=== PATIENT | male | born 1950 | race Caucasian/White ===

== ENCOUNTER 2021-05-16 08:00 | Outpatient (CLI) | payer OTHER | END 2021-05-16 23:59 | disposition home or self-care (01) | LOC: LAB.R 08:00 | PROVIDERS: ATTEND Internal Medicine | DX: Z20.822 Contact with and (suspected) exposure to COVID-19 (principal) ==

== ENCOUNTER 2021-05-16 12:20 | Outpatient (CLI) | payer OTHER ==
--- NOTE | 2021-05-16 13:12 | XRAY Report ---
PROCEDURE: Chest 2 View X-Ray INDICATIONS: DYSPNEA TECHNIQUE: 2 view(s) of the chest. COMPARISON: None. FINDINGS: SUPPORT DEVICES: None. LUNGS/PLEURA: No focal consolidation or space-occupying pneumothorax. Minimal blunting of the left co stophrenic sulcus, which may reflect scarring. No significant pleural effusion. MEDIASTINUM: The cardiomediastinal silhouette is within normal limits. BONES/SOFT TISSUES: No acute abnormality. IMPRESSION: 1.No acute cardiopulmonary abnormality. Reviewed by: Armando Colon MD on 05/16/2021 1:11 PM PDT Approved by: Armando Colon MD on 05/16/2021 1:11 PM PDT Station ID: [id number]
== END 2021-05-16 12:21 | disposition home or self-care (01) ==
LOC: DI 12:20
PROVIDERS: ATTEND Internal Medicine
DX: R06.00 Dyspnea, unspecified (principal); Z20.822 Contact with and (suspected) exposure to COVID-19

== ENCOUNTER 2021-05-24 17:02 | Outpatient (CLI) | payer OTHER ==
[2021-05-24 17:31] LABS: BASOPHILS % (AUTO) 0.3 %; EOSINOPHILS % (AUTO) 0.1 %; HCT - HEMATOCRIT 35.1 % (42.0-52.0); HGB - HEMOGLOBIN 11.5 g/dL (14.0-18.0); LYMPHOCYTES # (AUTO) 0.7 10^3/uL (1.5-3.5); LYMPHOCYTES % (AUTO) 6.2 %; MEAN CORPUSCULAR HEMOGLOBIN 30.1 pg (27.0-31.0); MEAN CORPUSCULAR HGB CONC 32.8 g/dL (32.0-36.0); MEAN CORPUSCULAR VOLUME 91.9 fL (80.0-94.0); MEAN PLATELET VOLUME 8.9 fL (7.4-11.4); MONOCYTES # (AUTO) 1.1 10^3/uL (0.0-1.0); MONOCYTES % (AUTO) 9.2 %; NEUTROPHILS # (AUTO) 9.8 10^3/uL (1.5-6.6); NEUTROPHILS % (AUTO) 83.9 %; PLT - PLATELET COUNT 278 10^3/uL (130-450); RED BLOOD COUNT 3.82 10^6/uL (4.70-6.10); WHITE BLOOD COUNT 11.7 x10^3/uL (4.8-10.8)
[2021-05-24 17:33] LABS: BILIRUBIN,URINE NEGATIVE (NEGATIVE); GLUCOSE, URINE (UA) 100 mg/dL (NEGATIVE); KETONES,URINE (UA) 15 mg/dL (NEGATIVE); LEUKOCYTE ESTERASE, URINE NEGATIVE (NEGATIVE); NITRITE,URINE NEGATIVE (NEGATIVE); OCCULT BLOOD,URINE NEGATIVE (NEGATIVE); PH,URINE 5.5 PH (5.0-7.5); PROTEIN,URINE NEGATIVE (NEGATIVE); UROBILINOGEN,URINE 0.2 (NORMAL) E.U./dL (NORMAL)
[2021-05-24 17:37] LABS: CLARITY,URINE CLEAR (CLEAR)
[2021-05-24 17:45] LABS: ALBUMIN 3.4 g/dL (3.2-5.5); BILIRUBIN,TOTAL 1.1 mg/dL (0.2-1.0); CALCIUM 9.4 mg/dL (8.5-10.3); CREATININE 0.8 mg/dL (0.6-1.2); POTASSIUM 4.1 mmol/L (3.5-5.0); TOTAL PROTEIN 6.7 g/dL (6.7-8.2)
[2021-05-24 18:01] LABS: THYROID STIMULATING HORMONE 1.49 uIU/mL (0.34-5.60)
[2021-05-26 23:03] LABS: ALBUMIN 3.2 g/dL (3.8-4.8); ALPHA 1 GLOBULIN 0.5 g/dL (0.2-0.3); ALPHA 2 GLOBULIN 1.1 g/dL (0.5-0.9); BETA 1 GLOBULIN 0.4 g/dL (0.4-0.6); BETA 2 GLOBULIN 0.4 g/dL (0.2-0.5); GAMMA GLOBULIN 0.8 g/dL (0.8-1.7)
== END 2021-05-24 17:03 | disposition home or self-care (01) ==
LOC: LAB 17:02
PROVIDERS: ATTEND Internal Medicine
DX: E83.52 Hypercalcemia (principal); R41.82 Altered mental status, unspecified; R41.3 Other amnesia; R53.83 Other fatigue; R82.90 Unspecified abnormal findings in urine
CPT/HCPCS: 36415; 80053; 81001; 81003; 82306; 83970; 84155; 84165; 84443; 85025; 87086

== ENCOUNTER 2021-05-28 07:00 | Outpatient (CLI) | payer OTHER | END 2021-05-28 23:59 | disposition home or self-care (01) | LOC: LAB.R 07:00 | PROVIDERS: ATTEND Internal Medicine | DX: E83.52 Hypercalcemia (principal); R41.82 Altered mental status, unspecified; R41.3 Other amnesia; R53.83 Other fatigue; R82.90 Unspecified abnormal findings in urine | CPT/HCPCS: 81599; 82570; 84156; 84166 ==

== ENCOUNTER 2021-05-28 20:55 | Emergency (ER) | payer OTHER ==
[2021-05-28 21:08] VITALS: BP 139/84
--- NOTE | 2021-05-28 22:13 | ED Physician Documentation ---
History of Present Illness - Stated complaint Stated Complaint: MALE /CONFUSED - Chief complaint Chief Complaint: Neuro - Additonal information Additional information: Patient is a 70-year-old male presenting to the emergency department with chief complaint of emotional lability and forgetfulness at home. He reports that he has been having episodes of feeling emotionally overwhelmed, which results in him sobbing uncontrollably at home. He reports multiple life stressors including attempting to Sell a home that he has lived in for several years. He also reports a close family members having significant medical issues at this time. Reports that he has been having progressive difficulty with memory over the course of the last year.States that this is gotten worse over the course of the last month, particularly he notices that he has a difficult time with math, stating that he had a hard time focusing and completing the math necessary to file his taxes or to calculate sales tax. He denies Feelings of hopelessness, helplessness, thoughts of suicide. He states that he has been following with his primary care doctor and recently had blood work and a urine analysis however comes to the emergency department today because he is concerned about his ability to make decisions concerning the sale of his home. He denies for any headache, blurred vision, double vision, head trauma, fever, chills, chest pain, shortness of breath, abdominal pain, nausea, vomiting, diarrhea, constipation, dysuria, urinary frequency. Review of Systems Ten Systems: 10 systems reviewed and negative Constitutional: denies: Fever Eyes: denies: Loss of vision Ears: denies: Loss of hearing Nose: denies: Rhinorrhea / runny nose Throat: denies: Dental pain / toothache Cardiac: denies: Chest pain / pressure Respiratory: denies: Dyspnea GI: denies: Abdominal Pain, Nausea, Vomiting : denies: Dysuria, Frequency, Hesitancy, Unable to Void, Incontinent Skin: denies: Rash Musculoskeletal: denies: Neck pain Neurologic: denies: Generalized weakness, Focal weakness, Numbness, Difficulty speaking, Near syncope, Syncope, Seizure, Confused Psychiatric: reports: Anxiety. denies: Depressed, Suicidal, Hallucinations Endocrine: denies: Polydypsia, Polyuria PD PAST MEDICAL HISTORY - Allergies Allergies/Adverse Reactions: Allergies Allergy/AdvReac Type Severity Reaction Status Date / Time No Known Drug Allergies Allergy Verified 05/28/21 21:08 PD ED PE NORMAL - Vitals Vital signs reviewed: Yes - General General: Alert and oriented X 3, No acute distress, Well developed/nourished - HEENT HEENT: Atraumatic - Neck Neck: Supple, no meningeal sign, No JVD, No bruit - Cardiac Cardiac: RRR, No gallop - Respiratory Respiratory: No respiratory distress, Clear bilaterally - Abdomen Abdomen: Normal bowel sounds, Non tender, No organomegaly - Male Male : Deferred, Harmonica Maker present - Rectal Rectal: Deferred, Pt declined - Back Back: No CVA TTP, No spinal TTP - Derm Derm: Normal color - Extremities Extremities: No deformity, No edema - Neuro Neuro: Alert and oriented X 3, visitor services technician 2-12 intact, No motor deficit, No sensory deficit, Normal speech, Other (Normal Mini-Mental status exam) - Psych Psych: Normal mood Results - Vitals Vitals: Vital Signs - 24 hr 05/28/21 21:03 Temperature 36.5 C Heart Rate 76 Respiratory 16 Rate Blood Pressure 139/84 H O2 Saturation 98 Oxygen O2 Source Room air PD MEDICAL DECISION MAKING - ED course Complexity details: d/w patient ED course: Patient is 70-year-old male presenting to the emergency department with concern for emotional lability and forgetfulness. Symptoms have been ongoing for several months at least. Additionally he reported multiple significant life stressors. Afebrile, hemodynamically stable on arrival to the emergency department. Chart review does demonstrate that he is currently being evaluated by primary care for this issue. Urine analysis performed a few days ago was negative for indications of infection. He denies any symptoms that would be concerning for urinary tract infection. The remainder of his physical exam is benign. I do believe that the most likely etiology for his presentation is a combination of emotional overwhelm/burnout as well as possibly some early onset dementia. I do not see any life-threatening or emergent cause for his symptoms and will refer him to primary care for Further evaluation. Departure - Departure Disposition: 01 Home, Self Care Clinical Impression: Stress reaction, Memory problem Instructions: Stress Relief Relaxation, ED Stress React Comments: Thank you for allowing us to care for you today at [facility]. Your urine studies which your doctor ordered a few days ago did not show any indications of infection. It does sound like you are going through a particularly stressful time, particularly with the sale of your home. I would like to encourage you to reach out to family and friends for added social support in the next few days. As we discussed I do think you would benefit from some deep breathing and other guided relaxation techniques at home. I have attached a document concerning some of these. More can be found easily on the Internet. Please do continue to follow- up with your primary care doctor. If it anytime you have any new or worsening symptoms or if you do develop any symptoms concerning for urinary tract infection such as urinary frequency, burning or discomfort or particularly foul or malodorous urine please not hesitate to return.
== END 2021-05-28 22:14 | disposition home or self-care (01) ==
LOC: ED 20:55
DX: F43.9 Reaction to severe stress, unspecified (principal); R41.3 Other amnesia
CPT/HCPCS: 99281; 99282

== ENCOUNTER 2021-06-08 04:23 | Outpatient (CLI) | payer OTHER | END 2021-06-08 04:24 | disposition short-term general hospital (02) | LOC: EMS 04:23 | DX: R47.81 Slurred speech (principal); R29.810 Facial weakness | CPT/HCPCS: A0425; A0427 ==

== ENCOUNTER 2021-07-20 08:00 | Outpatient (CLI) | payer OTHER ==
--- NOTE | 2021-07-20 13:46 | CT Report ---
PROCEDURE: HEAD WO INDICATIONS: Altered mental status TECHNIQUE: Noncontrast 4.5 mm thick angled axial sections acquired from the foramen magnum to the vertex. For r adiation dose reduction, the following was used: automated exposure control, adjustment of mA and/or kV according to patient size. COMPARISON: None. FINDINGS: Image quality: Excellent. CSF spaces: Basal cisterns are patent. No extra-axial fluid collections. Ventricles are normal in size and shape. Brain: No midline shift. No intracranial masses or hemorrhage. Jung-white matter interface is norm al. Skull and face: Calvarium and visualized facial bones are intact, without suspicious lesions. Sinuses: Visualized sinuses and mastoids are clear. IMPRESSION: No acute intracranial abnormality. Reviewed by: Stephen Aguiar MD on 07/20/2021 1:45 PM PDT Approved by: Stephen Aguiar MD on 07/20/2021 1:45 PM PDT Station ID: [id number]
== END 2021-07-20 23:59 | disposition home or self-care (01) ==
LOC: DI 08:00
PROVIDERS: ATTEND Nurse Practitioner Family
DX: R41.82 Altered mental status, unspecified (principal)

== ENCOUNTER 2021-07-20 11:54 | Outpatient (CLI) | payer OTHER ==
--- NOTE | 2021-07-20 19:55 | Ultrasound Report ---
PROCEDURE: Carotid Doppler Complete INDICATIONS: CVA TECHNIQUE: Color and pulse Doppler interrogation was performed of both carotid systems, with image documentation and velocity measurements. COMPARISON: None. FINDINGS: Right side: Brachial blood pressure: 102/61 mm Hg. Common carotid artery peak systolic velocity: 80 cm/sec. Internal carotid artery peak systolic velocity: 74 cm/sec. Internal carotid artery end diastolic velocity: 18 cm/sec. External carotid artery peak systolic velocity: 65 cm/sec. ICA/CCA peak systolic ratio: 0.93 . Jung scale imaging description: Focal calcified plaque in the right internal carotid artery. Mild st enosis, less than 50%. Percent internal carotid artery stenosis: Mild stenosis, less than 50% . Vertebral artery: Flow direction is antegrade. Left side: Brachial blood pressure: 108/58 mm Hg. Common carotid artery peak systolic velocity: 82 cm/sec. Internal carotid artery peak systolic velocity: 74 cm/sec. Internal carotid artery end diastolic velocity: 25 cm/sec. External carotid artery peak systolic velocity: 70 cm/sec. ICA/CCA peak systolic ratio: 0.90 . Jung scale imaging description: Minimal plaque. Percent internal carotid artery stenosis: Widely patent vessel. . Vertebral artery: Flow direction is antegrade. IMPRESSION: Mild, less than 50% proximal right internal carotid artery stenosis. Mild left internal carotid arter y plaque without stenosis. The estimate of stenosis included in the report of the imaging study was calculated using the NASCET method Reviewed by: Yash Lovelace MD on 07/20/2021 7:54 PM PDT Approved by: Yash Lovelace MD on 07/20/2021 7:54 PM PDT Station ID: [id number]
== END 2021-07-20 11:55 | disposition home or self-care (01) ==
LOC: DI 11:54
PROVIDERS: ATTEND Internal Medicine
DX: I63.9 Cerebral infarction, unspecified (principal); I65.22 Occlusion and stenosis of left carotid artery
CPT/HCPCS: 93880

== ENCOUNTER 2021-12-16 08:00 | Outpatient (CLI) | payer OTHER ==
[2021-12-16 17:43] LABS: POTASSIUM 4.1 mmol/L (3.5-5.0)
[2021-12-16 21:13] LABS: ESTIMATED AVERAGE GLUCOSE 229 mg/dL (70-100); HEMOGLOBIN A1c% 9.6 % (4.27-6.07)
== END 2021-12-16 23:59 | disposition home or self-care (01) ==
LOC: LAB.R 08:00
PROVIDERS: ATTEND Internal Medicine
DX: I48.92 Unspecified atrial flutter (principal); I63.9 Cerebral infarction, unspecified; E11.9 Type 2 diabetes mellitus without complications
CPT/HCPCS: 80048; 82607; 83036

== ENCOUNTER 2022-04-05 14:57 | Emergency (ER) | payer OTHER ==
--- NOTE | 2022-04-05 15:22 | ED Physician Documentation ---
History of Present Illness - Stated complaint Stated Complaint: ARM WEAKNESS - Chief complaint Chief Complaint: Neuro - Additonal information Additional information: History provided by patient. Taylor historian. 71-year-old male presents to the emergency department for evaluation of brief episode bilateral upper extremity weakness. [place] the [place] getting ready to do a turn when he felt like he could not coordinate his arms. He felt like they were weak and heavy. He was able to wool puller and summoned 911. He states that he woke up this morning feeling jittery and nervous. He states his symptoms lasted perhaps 1 minute before going away. He denies that he had slurred speech or facial droop. Patient reports that in June 2021 he had a CVA that was treated at [facility] in [place]. He is unable to tell me what the symptoms of the CVA were at that time. He does state he has no residual deficits. He is anticoagulated on Eliquis. Denies any history of atrial fibrillation. PCP is Dr. Watson. NIHSS on presentation is 0 Review of Systems Constitutional: denies: Fever, Chills Eyes: denies: Loss of vision Throat: reports: Reviewed and negative Respiratory: reports: Reviewed and negative GI: reports: Reviewed and negative : reports: Reviewed and negative Skin: reports: Reviewed and negative Musculoskeletal: denies: Neck pain, Back pain, Extremity pain Neurologic: reports: Generalized weakness, Focal weakness. denies: Numbness, Difficulty speaking, Near syncope, Syncope, Seizure, Confused, Headache PD PAST MEDICAL HISTORY - Allergies Allergies/Adverse Reactions: Allergies Allergy/AdvReac Type Severity Reaction Status Date / Time No Known Drug Allergies Allergy Verified 04/05/22 15:15 PD ED PE NORMAL - General General: Alert and oriented X 3, No acute distress, Well developed/nourished - HEENT HEENT: Atraumatic, Moist mucous membranes - Neck Neck: Supple, no meningeal sign, No adenopathy - Cardiac Cardiac: RRR, No murmur - Respiratory Respiratory: No respiratory distress, Clear bilaterally - Abdomen Abdomen: Normal bowel sounds, Soft, Non tender - Back Back: No CVA TTP, No spinal TTP - Derm Derm: Normal color, Warm and dry, No rash - Extremities Extremities: No deformity, No tenderness to palpate, Normal ROM s pain - Neuro Neuro: Alert and oriented X 3, geophysical laboratory supervisor 2-12 intact, No motor deficit, No sensory deficit, Normal speech Eye Opening: Spontaneous Motor: Obeys Commands Verbal: Oriented GCS Score: 15 Results - Vitals Vitals: Vital Signs - 24 hr 04/05/22 04/05/22 04/05/22 15:05 15:33 16:00 Temperature 36.6 C Heart Rate 63 59 L 63 Respiratory 13 17 15 Rate Blood Pressure 117/74 135/89 H 132/83 H O2 Saturation 97 96 97 04/05/22 16:30 Temperature Heart Rate 62 Respiratory 14 Rate Blood Pressure 138/91 H O2 Saturation 96 Oxygen O2 Source Room air - EKG (time done) 1520 Rate: Rate (enter#) (58) Rhythm: NSR [place]: Normal Intervals: Normal HI QRS: Normal Ischemia: Normal ST segments Compare to prior EKG: Old EKG unavailable Computer interpretation: Agree with computer - Labs Labs: Laboratory Tests 04/05/22 04/05/22 04/05/22 15:27 15:27 15:27 WBC 8.2 RBC 5.14 Hgb 15.5 Hct 47.8 MCV 93.0 MCH 30.2 MCHC 32.4 RDW 12.3 Plt Count 189 MPV 9.8 Neut # (Auto) 6.1 Lymph # (Auto) 1.5 [place] # (Auto) 0.4 Eos # (Auto) 0.2 Baso # (Auto) 0.1 Absolute Nucleated RBC 0.00 Nucleated RBC % 0.0 PT 12.4 INR 1.1 Sodium 139 Potassium 4.2 Chloride 102 Carbon Dioxide 26 Anion Gap 11.0 BUN 24 H Creatinine 0.8 Estimated GFR (MDRD) 96 Glucose 128 H Calcium 10.1 Total Bilirubin 0.5 AST 29 ALT 34 Alkaline Phosphatase 79 Total Protein 7.1 Albumin 4.1 Globulin 3.0 Albumin/Globulin Ratio 1.4 Lipase 42 - Rads (name of study) angio neck Radiology: Final report received (No areas of hemodynamically significant stenosis, vascular occlusion or aneurysmal dilation within the neck vasculature.) angio head Radiology: Final report received (No acute intracranial process. No areas of hemodynamically significant stenosis, vascular occlusion or aneurysmal dilation within the anterior or posterior circulation.) PD Medical Decision Making - ED course Complexity details: reviewed results, re-evaluated patient, considered differential, d/w patient ED course: 71-year-old male presents emergency department for evaluation of a very brief episode of reported bilateral upper extremity weakness that he noticed when he was [place] his car to the post office. He felt like he could not properly coordinate the movement of his arms. States that the symptoms lasted less than a minute. He does report a history of a previous CVA treated at [facility] about 1 year ago. Patient is currently taking Eliquis. He does state that he had no residual effects from his CVA. On presentation to the emergency department the patient had an NIHSS of 0. There were no focal deficits arm weakness facial droop or slurred speech noted. I did obtain CBC, electrolytes that showed no acute worrisome findings. With a history of anticoagulation and reported previous CVA a CT angio of the head and neck was completed with no acute findings noted. EKG was completed today. Patient is not in atrial fibrillation. He has remained neurologically and hemodynamically stable here in the ER with no worrisome vital sign abnormalities. The etiology of the patient's symptoms is not clear though I have lower suspicion for neurologic process given the reported bilateral upper extremity symptoms. I have advised the patient to follow closely with his PCP Dr. Watson. He may benefit from an outpatient MRI as well as an echocardiogram of his heart. We discussed the usual emergent return precautions. Patient reports that he has good follow-up with Dr. Watson. Departure - Departure Disposition: 01 Home, Self Care Clinical Impression: Bilateral arm weakness, History of CVA (cerebrovascular accident) Condition: Serious Record reviewed to determine appropriate education?: Yes Comments: Shilo you came to the emergency department because you developed some sudden weakness in both your arms when you are driving. Weakness in both arms is not typically a sign of a stroke though you do report that you had a stroke that was treated at [facility] last year and you are currently anticoagulated. Here in the emergency department your vital signs have been normal. Your EKG showed sinus rhythm without atrial fibrillation. Your CBC and electrolytes also showed no worrisome findings. We did do CT angiograms of the head and neck today that showed no findings of stenosis, aneurysm or dissection. It is not clear what the cause of your sudden symptoms was though I do recommend you avoid driving until seen by your primary care doctor at a minimum. You may benefit from an outpatient MRI of your brain to determine the severity of previous strokes. However your symptoms today are not consistent with an acute stroke. You may also benefit from an outpatient echocardiogram of your heart. We do not have any history of echocardiograms with you here in our system. If at any point you develop worsening symptoms, develop sudden weakness in your arm or leg, have slurred speech or facial droop you should return immediately to the ER. NIHSS - Time Time: 15:15 - Level of Consciousness Level of consciousness: (0) Alert, Keenly responsive LOC Questions: (0) Answers both Q's correct LOC Commands: (0) Performs both correctly - Gaze Best Gaze: (0) Normal - Visual Visual: (0) No loss - Facial Palsy Facial Palsy: (0) Normal, symmetrical movement - Motor Arms (both separate) Motor Arm (right): (0) No drift Motor Arm (left): (0) No drift - Motor Legs (both separate) Motor Leg (right): (0) No drift Motor Leg (left): (0) No drift - Limb Ataxia Limb Ataxia: (0) Absent - Sensory Sensory: (0) Normal - Best Language Best Language: (0) No aphasia - Dysarthria Dysarthria: (0) Normal - Extinction and Inattention (formally neg Extinction and inattention: (0) No abnormality - Total Score/Results Total Score/Result: 0
[2022-04-05 15:36] LABS: BASOPHILS # (AUTO) 0.1 10^3/uL (0.0-0.1); BASOPHILS % (AUTO) 0.9 %; EOSINOPHILS # (AUTO) 0.2 10^3/uL (0.0-0.7); EOSINOPHILS % (AUTO) 1.8 %; HCT - HEMATOCRIT 47.8 % (42.0-52.0); HGB - HEMOGLOBIN 15.5 g/dL (14.0-18.0); LYMPHOCYTES # (AUTO) 1.5 10^3/uL (1.5-3.5); LYMPHOCYTES % (AUTO) 17.7 %; MEAN CORPUSCULAR HEMOGLOBIN 30.2 pg (27.0-31.0); MEAN CORPUSCULAR HGB CONC 32.4 g/dL (32.0-36.0); MEAN PLATELET VOLUME 9.8 fL (7.4-11.4); MONOCYTES # (AUTO) 0.4 10^3/uL (0.0-1.0); MONOCYTES % (AUTO) 5.2 %; NEUTROPHILS # (AUTO) 6.1 10^3/uL (1.5-6.6); PLT - PLATELET COUNT 189 10^3/uL (130-450); RED BLOOD COUNT 5.14 10^6/uL (4.70-6.10); RED CELL DISTRIBUTION WIDTH 12.3 % (12.0-15.0); WHITE BLOOD COUNT 8.2 x10^3/uL (4.8-10.8)
[2022-04-05 15:48] LABS: INR 1.1 (0.8-1.2); PT - PROTHROMBIN TIME 12.4 secs (9.9-12.6)
--- NOTE | 2022-04-05 15:54 | XRAY Report ---
PROCEDURE: Chest 1 View X-Ray INDICATIONS: Chest Pain TECHNIQUE: One view of the chest was acquired. COMPARISON: CXR 05/16/21 FINDINGS: Surgical changes and devices: None. Lungs and pleura: No pleural effusions or pneumothorax. Lungs are clear. Mediastinum: Mediastinal contours appear normal. Heart size is normal. Bones and chest wall: No suspicious bony lesions. Overlying soft tissues appear unremarkable. IMPRESSION: No acute pulmonary process. Reviewed by: Julee Miller MD on 04/05/2022 3:52 PM [facility] Approved by: Julee Miller MD on 04/05/2022 3:52 PM [facility] Station ID: [id number]
[2022-04-05 15:59] LABS: ALBUMIN 4.1 g/dL (3.2-5.5); ALBUMIN/GLOBULIN RATIO 1.4 (1.0-2.2); BILIRUBIN,TOTAL 0.5 mg/dL (0.2-1.0); CALCIUM 10.1 mg/dL (8.5-10.3); CREATININE 0.8 mg/dL (0.6-1.2); POTASSIUM 4.2 mmol/L (3.5-5.0); TOTAL PROTEIN 7.1 g/dL (6.7-8.2)
[2022-04-05] MEDS ORDERED: iohexoL-300 100 ML VIAL ONE (16:04)
--- NOTE | 2022-04-05 16:44 | CT Report ---
PROCEDURE: ANGIO HEAD W/WO INDICATIONS: arm weakness, previous stroke june CONTRAST: 80mL Omni 300 TECHNIQUE: Precontrast 4.5 mm thick angled axial sections acquired from the foramen magnum to the vertex. Afte r the administration of intravenous contrast, 1 mm thick sections acquired through the [place] of [place] is. Postcontrast 4.5 mm thick sections then re-acquired from the foramen magnum to the vertex. 3-di mensional uzxxcce-xmyzqskxl-qycytyslrs (MIP) and/or volume rendering reformats were acquired of the c entral intracranial vasculature. For radiation dose reduction, the following was used: automated ex posure control, adjustment of mA and/or kV according to patient size. COMPARISON: CTA head 07/20/2021, CTA neck 04/05/2022 FINDINGS: Image quality: Excellent. Anterior circulation: Intracranial internal carotid arteries are normal in size and flow. The flow within the paired anterior cerebral arteries is normal and symmetric. The flow within the middle cer ebral arteries is normal and symmetric. The anterior communicating artery is seen. No aneurysms are seen. Posterior circulation: There is a slight right vertebral artery dominance. Visualized portions of th e vertebral arteries demonstrate normal caliber, and join to form a normal appearing basilar artery. Flow within the posterior cerebral arteries is normal and symmetric. No aneurysms are seen. CSF spaces: Ventricles are normal in size and shape. Basal cisterns are patent. No extra-axial flu id collections. Brain: No midline shift. No intracranial bleeds or masses. Low-attenuation is present in the left frontal lobe most consistent with prior infarction. Jung-white matter interface appears intact. Skull and face: Calvarium and facial bones appear intact, without suspicious lesions. Sinuses: Visualized sinuses and mastoids are clear. IMPRESSION: No acute intercranial process. No areas of hemodynamically significant stenosis, vascular occlusion or aneurysmal dilation within th e anterior or posterior circulation. Reviewed by: Julee Miller MD on 04/05/2022 4:43 PM PST Approved by: Julee Miller MD on 04/05/2022 4:43 PM PST Station ID: [id number]
--- NOTE | 2022-04-05 16:45 | CT Report ---
PROCEDURE: ANGIO NECK W INDICATIONS: arm weakness; previosu stroke june 2021 CONTRAST: 80mL Omni 300 TECHNIQUE: After the administration of intravenous contrast, 1.5 mm axial sections acquired from the aortic arch to the [place] of [place]. Coronal 3-D maximum intensity projection (MIP) and/or volume rendering ref ormats were then performed. For radiation dose reduction, the following was used: automated exposur e control, adjustment of mA and/or kV according to patient size. COMPARISON: CT head 04/05/2022, CTA head 07/20/2021 FINDINGS: Image quality: Excellent. Carotid system: The great vessels demonstrate a conventional anatomy as they arise from the aortic a rch. The origins of the common carotid arteries appear patent. The common carotid arteries demonstr ate normal calibers and courses. The bifurcation regions appear normal bilaterally. The internal ca rotid arteries demonstrate normal caliber and course. Posterior circulation: There is a slight right vertebral artery dominance. The origins of the verteb ral arteries appear patent. The more superior portions of the vertebral arteries demonstrate normal course and caliber. They join to form a normal appearing basilar artery. Soft tissues: Visualized neck soft tissues demonstrate no suspicious abnormalities. The thyroid is normal in size and there are no incidental findings. Bones: No suspicious bony lesions. Visualized cervical spine appears normally aligned. IMPRESSION: There are no areas of hemodynamically significant stenosis, vascular occlusion or aneurysmal dilation within the neck vasculature. The estimate of stenosis included in the report of the imaging study was calculated using the NASCET method CLINICAL RECOMMENDATION STATEMENTS: In patients <35 years with an ITN detected on CT, MRI, or extrathyroidal ultrasound, the Committee re commends further evaluation with dedicated thyroid ultrasound if the nodule is "e1 cm and has no susp icious imaging features, and if the patient has normal life expectancy. In patients "e35 years with an ITN detected on CT, MRI, or extrathyroidal ultrasound, the Committee r ecommends further evaluation with dedicated thyroid ultrasound if the nodule is "e1.5 cm and has no s uspicious imaging features, and if the patient has normal life expectancy. (ACR, 2014) Reviewed by: Julee Miller MD on 04/05/2022 4:43 PM PST Approved by: Julee Miller MD on 04/05/2022 4:43 PM PST Station ID: [id number]
[2022-04-05 17:23] VITALS: BP 117/64
[2022-04-05] MEDS: iohexoL-300 100 ML VIAL IVP ONE (19:47)
== END 2022-04-05 17:41 | disposition home or self-care (01) ==
LOC: EDUNIT# → ED 14:57
DX: R53.1 Weakness (principal); Z86.73 Personal history of transient ischemic attack (TIA), and cerebral infarction without residual deficits; Z79.01 Long term (current) use of anticoagulants
CPT/HCPCS: 36415; 70496; 70498; 71045; 80053; 83690; 85025; 85610; 93005; 99284; Q9967

== ENCOUNTER 2022-09-27 16:05 | Outpatient (CLI) | payer OTHER ==
[2022-09-27 16:29] LABS: CREATININE 0.8 mg/dL (0.6-1.3)
== END 2022-09-27 16:06 | disposition home or self-care (01) ==
LOC: LAB 16:05
PROVIDERS: ATTEND Internal Medicine
DX: Z79.899 Other long term (current) drug therapy (principal)
CPT/HCPCS: 36415; 82565

== ENCOUNTER 2022-09-28 08:31 | Outpatient (CLI) | payer OTHER ==
--- NOTE | 2022-09-28 12:32 | CT Report ---
PROCEDURE: CHEST W INDICATIONS: BILATERAL PLEURAL EFFUSION CONTRAST: 100ml omni 300 TECHNIQUE: After the administration of intravenous contrast, 1 mm axial images were acquired from the pulmonary apices through the posterior costophrenic angles. Axial 5 mm soft tissue kernel reconstructions were performed as well as 8 mm axial MIP and coronal and sagittal 5 mm reformations. For radiation dose reduction, the following was used: automated exposure control, adjustment of mA and/or kV according to patient size. COMPARISON: Chest radiograph 04/05/2022. FINDINGS: Image quality: Excellent. Lungs and pleura: No consolidation. No pleural effusions. No pneumothorax. A few scattered sub-6 mm pulmonary nodules, for example: -3 mm right upper lobe nodule (3/115, MIP image 58) -3 mm right upper lobe nodule (3/174), MIP image 88) Mediastinum: Heart size is normal. No pericardial effusion. Coronary artery and aortic arch calcifica tions. No large vessel abnormality. No mediastinal adenopathy by size criteria. Chest wall and lower neck: Thyroid is unremarkable. No axillary or supraclavicular adenopathy by size . Bones: No acute or suspicious osseous abnormality. Mild degenerative changes visualized spine. Upper Abdomen: Unremarkable. IMPRESSION: 1. No pleural effusions as clinically queried. No focal airspace consolidation. 2. Scattered sub-6 mm pulmonary nodules. Follow-up image guidelines: Low risk patients: no routine fo llow-up is recommended; High risk patients, optional CT at 12 months is recommended to demonstrate st ability/resolution. Reviewed by: Jaymie Harden MD on 09/28/2022 12:31 PM PDT Approved by: Jaymie Harden MD on 09/28/2022 12:31 PM PDT Station ID: [id number]
[2022-09-28] MEDS ORDERED: iohexoL-300 100 ML VIAL IVP ONE (15:29)
== END 2022-09-28 08:32 | disposition home or self-care (01) ==
LOC: DI 08:31
PROVIDERS: ATTEND Internal Medicine
DX: J90 Pleural effusion, not elsewhere classified (principal); R91.8 Other nonspecific abnormal finding of lung field; Z79.899 Other long term (current) drug therapy
CPT/HCPCS: 71260; Q9967

== ENCOUNTER 2023-03-24 19:14 | Emergency (ER) | payer OTHER ==
[2023-03-24 19:38] VITALS: BP 135/67; O2SAT 98
--- NOTE | 2023-03-24 19:56 | ED Physician Documentation ---
History of Present Illness - Stated complaint Stated Complaint: MED REFILL - Chief complaint Chief Complaint: General - History obtained from History obtained from: Patient - Additonal information Additional information: 72-year-old gentleman presents by private vehicle requesting a refill of paxlovid. He developed symptomatic COVID, I am not sure when and had a prescription for Paxlovid written by Dr. Watson filled 2 days ago. He is out now. He thinks he took them appropriately. He lives alone but there is someone in an attached apartment. He plans to move to [place] in short order to be with supportive friends. PD PAST MEDICAL HISTORY - Past Medical History Past Medical History: Yes Neuro: CVA - Past Surgical History Past Surgical History: No - Allergies Allergies/Adverse Reactions: Allergies Allergy/AdvReac Type Severity Reaction Status Date / Time No Known Drug Allergies Allergy Verified 03/24/23 19:30 - Social History Does the pt smoke?: No Smoking Status: Never smoker Does the pt drink ETOH?: No Does the pt have substance abuse?: No PD ED PE NORMAL - Vitals Vital signs reviewed: Yes - General General: Other (He is alert and oriented to person and place. When queried the month he replied May, he does not know the year.) - HEENT HEENT: PERRL, EOMI - Cardiac Cardiac: RRR, No murmur - Respiratory Respiratory: No respiratory distress, Clear bilaterally - Abdomen Abdomen: Non tender - Neuro Eye Opening: Spontaneous Motor: Obeys Commands Verbal: Oriented GCS Score: 15 - Psych Psych: Normal mood, Normal affect Results - Vitals Vitals: Vital Signs - 24 hr 03/24/23 19:19 Temperature 36.5 C Heart Rate 60 Respiratory 16 Rate Blood Pressure 135/67 H O2 Saturation 98 Oxygen O2 Source Room air PD Medical Decision Making - ED course ED course: 72-year-old gentleman who lives alone seems to have developed some dementia and was missed taking his medications. He appears nontoxic with unremarkable vital signs, I have asked our social work department to do an APS report on him. No medical emergency present. Departure - Departure Disposition: 01 Home, Self Care Clinical Impression: Dementia Qualifiers: Dementia type: unspecified type Dementia severity: unspecified severity Dementia behavioral or psychological symptom: without behavioral, psychotic, or mood disturbance or anxiety Qualified Code(s): F03.90 - Unspecified dementia, unspecified severity, without behavioral disturbance, psychotic disturbance, mood disturbance, and anxiety Condition: Good Record reviewed to determine appropriate education?: Yes Instructions: ED Dementia Caregiver Support, ED Confusion Follow-Up: Skylar Watson MD [Primary Care Provider] - Within 1 week Comments: Shilo I am worried that you are developing dementia as you have very poor memory, while there is no medical emergency I have asked our social work department to have APS check on you and I do think it is for you appropriate to move with more supportive friends as you may have worsening issues as time goes by. Return if worse.
== END 2023-03-24 20:20 | disposition home or self-care (01) ==
LOC: ED 19:14
DX: Z76.0 Encounter for issue of repeat prescription (principal); F03.90 Unspecified dementia, unspecified severity, without behavioral disturbance, psychotic disturbance, mood disturbance, and anxiety
CPT/HCPCS: 99281; 99282